=== PATIENT | female | born 1965 | race Caucasian/White ===

== ENCOUNTER 2024-08-17 12:07 | Emergency (ER) | payer OTHER, SELFPAY ==
--- NOTE | ~2024-08-17 | XR_ITS ---
EXAMINATION: XR HUMERUS, RIGHT CLINICAL INFORMATION: fall COMPARISON: Correlated to the right shoulder x-rays same day. TECHNIQUE: AP and lateral views of the right humerus. FINDINGS: The right humeral head is anterior right scapula and inferior to a coracoid. No acute cortical disruption. No gross volume loss. No lytic or blastic lesions. Acromioclavicular joint is intact. XR/XR humerus RT IMPRESSION: Anterior subcoracoid dislocated right glenohumeral joint. No acute fracture. Electronically signed by: Daryl Singh MD 08/17/2024 01:47 PM EST
--- NOTE | ~2024-08-17 | XR_ITS ---
EXAMINATION: XR RIBS, RIGHT CLINICAL INFORMATION: fall COMPARISON: None available. TECHNIQUE: 3 views of the right ribs were obtained. FINDINGS: No consolidation, pleural effusion or pneumothorax. No hyperinflation. Cardiomediastinal silhouette size is normal. No acute cortical disruption within the ribs right hemithorax. There is an anterior position of the right humeral head with respect to the right glenoid and below the coracoid process. There is a deformity in the greater tuberosity. XR/XR ribs RT min 3V w [id number] IMPRESSION: No acute airspace disease. No acute rib fracture, right hemithorax. Anterior subcoracoid dislocated right shoulder with Hill-Sachs deformity/compression fracture. Electronically signed by: Daryl Singh MD 08/17/2024 01:57 PM [facility]
--- NOTE | ~2024-08-17 | XR_ITS ---
EXAMINATION: XR SHOULDER, RIGHT CLINICAL INFORMATION: post reduction COMPARISON: Exam date x-ray TECHNIQUE: Three views of the right shoulder. FINDINGS: There is normal alignment of the right glenohumeral joint. There is subtle deformity of the greater tuberosity with subchondral cyst. A common clavicular joint is intact. No gross acute cortical disruption. XR/XR shoulder RT min 2V IMPRESSION: Satisfactory post reduction. Electronically signed by: Daryl Singh MD 08/17/2024 02:09 PM [facility]
--- NOTE | ~2024-08-17 | XR_ITS ---
EXAMINATION: XR ELBOW, RIGHT CLINICAL INFORMATION: fall COMPARISON: None available. TECHNIQUE: AP, lateral, and oblique views of the right elbow. FINDINGS: No acute cortical disruption or malalignment. No lytic or blastic lesions. No joint effusion. No metallic or radiopaque foreign body. XR/XR elbow RT min 3V IMPRESSION: No acute fracture or dislocation. Electronically signed by: Daryl Singh MD 08/17/2024 01:54 PM EST
--- NOTE | ~2024-08-17 | XR_ITS ---
EXAMINATION: XR SHOULDER, RIGHT CLINICAL INFORMATION: fall COMPARISON: None available. TECHNIQUE: Three views of the right shoulder. FINDINGS: The right humeral head is anterior to the right glenoid of the scapula and below the coracoid process. There is a cortical irregularity and deformity within the greater tuberosity of the humerus. The acromioclavicular joint is intact. XR/XR shoulder RT min 2V IMPRESSION: Anterior subcoracoid dislocated right glenohumeral joint/shoulder with the questionable Hill-Sachs deformity/fracture. Electronically signed by: Daryl Singh MD 08/17/2024 01:50 PM EST
--- NOTE | 2024-08-17 12:46 | ED.FALL ---
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 States fell onto right shoulder, denies head trauma or LOC. Denies anticoagulation use. Right-hand dominant. Denies neck/back pain, SOB Related Data Previous Rx's ?Medication ?Instructions ?Recorded acetaminophen 500 mg tablet 500 mg PO Q6H PRN fever or pain 08/17/24 (Tylenol Extra Strength) #14 tabs ibuprofen 800 mg tablet 800 mg PO Q8H PRN pain #14 tabs 08/17/24 lidocaine 5 % topical patch 1 patch topical DAILY PRN pain #30 08/17/24 (Lidoderm) ea morphine 15 mg immediate release 15 mg PO Q6H PRN pain (scale score 08/17/24 tablet 7-10) 3 days #9 tabs Allergies Allergy/AdvReac Type Severity Reaction Status Date / Time Sulfa (Sulfonamide Allergy Unknown RASH, HTN Unverified 08/17/24 12:59 Antibiotics) [SULFA (SULFONAMIDE ANTIBIOTICS)] Review of Systems Review of Systems: Yes all other systems are reviewed and are negative Constitutional: Constitutional: Reports as per [facility] Past Medical History Attestation statement: The following information was validated with the patient. Source: old records reviewed Social History Social History Advance Directives: Yes Advance Directives Information Provided: Yes Advance Directives on File: No Do you have a plan to hurt others: No Plan Physical Exam Vital Signs: Vital Signs: Last Vital Signs Temp 98 F 08/17/24 12:49 Pulse 89 08/17/24 12:49 Resp 16 08/17/24 12:49 BP 163/91 H 08/17/24 12:49 Pulse Ox 97 08/17/24 12:49 O2 Del Method Room Air 08/17/24 12:49 BMI result Body Mass Index 44.6 Const: General: cooperative, healthy appearing and no acute distress Orientation/consciousness: patient oriented x3 Limitations: no limitations HEENT: Head: Yes normal to inspection and Yes atraumatic Ears: hearing grossly normal bilaterally General nose exam: Normal external nose present Face and sinus: Yes normal facial exam Eyes: General: appearance normal, both eyes and all related structures EOM: EOMs intact bilaterally Neck: Neck: Yes normal visual inspection and Yes no meningeal signs Chest: Other: + right lower anterior lateral reproducible chest wall tenderness. No flail chest, erythema or ecchymosis Chest palpation & inspection: normal inspection of the chest, no crepitus and tenderness Resp: Effort & Inspection: normal respiratory effort and no respiratory distress Auscultation: clear to auscultation bilaterally Cardio: Rate: regular rate Heart sounds: S1 normal heart sound present and S2 normal heart sound present Back/Spine/Pelvis: Other: No midline cervical/thoracic/lumbar spinous tenderness/step-off or deformity Skin: Rashes: no rashes Wounds: no wounds Neuro: General: patient oriented x3, tone normal and no meningeal signs Cranial nerves: Yes CN's II-XII intact bilaterally Gait exam (Neuro): Normal gait present Extrem: Other: + appreciable right shoulder deformity. Diffusely tender to palpation. Limited ROM secondary to pain. + tenderness to proximal humerus. Right elbow/wrist/hand nontender Course Course Course Narrative: 58 yo female with PMH of HTN, DM, HLD not on blood thinners here with c/o walking over a guardrail during a walk this morning lifted one leg over and she tripped and fell landing on R shoulder and upper arm. She is R hand dominant no headstrike or LOC. no neck pain. Also has R rib pain - lung sounds present on exam. R humerus/shoulder/elbow xray, R rib series this is a RAPID medical screening exam the rest of the history and physical exam is to be done by the main provider. XR humerus RT IMPRESSION: Anterior subcoracoid dislocated right glenohumeral joint. No acute fracture. XR shoulder RT min 2V IMPRESSION: Anterior subcoracoid dislocated right glenohumeral joint/shoulder with the questionable Hill-Sachs deformity/fracture. XR elbow RT min 3V IMPRESSION: No acute fracture or dislocation. XR ribs RT min 3V w [id number]: No acute airspace disease. No acute rib fracture, right hemithorax. Anterior subcoracoid dislocated right shoulder with Hill-Sachs deformity/compression fracture. > reduction performed in the ED with scapular manipulation and traction/counter-traction with successful reduction 1422--XR shoulder RT min 2V IMPRESSION: Satisfactory post reduction. > sling applied. Is to follow up with Orthopedics Medications Administered Discontinued Medications Generic Name Dose Route Start Last Admin Trade Name Freq PRN Reason Stop Dose Admin Acetaminophen 975 mg 08/17/24 12:50 08/17/24 13:00 Acetaminophen 325 Mg Tablet PO 08/17/24 12:51 975 mg ONCE ONE Administration Morphine Sulfate 15 mg 08/17/24 12:50 08/17/24 13:01 Morphine Sulfate Immed Release 15 Mg Tablet PO 08/17/24 12:51 15 mg ONCE ONE Administration Procedures Orthopedic Joint Reduction Joint #1: Side: right Joint Reduction Location: shoulder Analgesia: other (P.o. morphine) Shoulder Technique Used (if applicable): traction/counter-traction and scapula manipulation Post-reduction neuro exam: intact Post-reduction vascular: intact Post Reduction X-Ray Obtained: Yes Post Reduction X-Ray Results: reduced Splint Applied: No (sling) Patient Tolerated Procedure: well Additional Comments: performed with Dr. Gibson Medical Decision Making Medical Decision Making MDM Narrative: 58-year-old female with past medical history HTN, DM, HLD, presenting to the ED complaining of right shoulder/upper arm and rib pain s/p mechanical trip and fall over a guard rail HR COORDINATOR. On exam vital signs stable, NAD, appears uncomfortable, physical exam as noted above. Concern for shoulder/clavicular vs humeral vs rib fracture vs dislocation vs tendon/ligamental injury. Lower suspicion for acute intra-abdominal or intrathoracic injury Plan: X-rays, pain control Please refer to course for remaining clinical decision making, interpretation of labs/imaging results, and discussions with consultants and/or family members. Differential Diagnosis Differential Diagnoses: The differential diagnosis associated with the presentation includes As above Independent Interpretation I performed an independent interpretation of an: Plain X-Ray Radiology Impression Discussion of test interpretation with radiology: I have reviewed the radiologist's reading. External Record Review External record reviewed: Inpatient record, Office record, Outpatient record, Prior outpatient labs, Prior outpatient radiology, Primary care record and Outside ED record Tests considered The following testing was considered but not selected: As above Prescription Management I considered prescription management with: Pain Medication Chronic Conditions Patient?s care impacted by: Diabetes, Hypertension and Other Social Determinants Patient?s care significantly limited by Social Determinants of Health including: Other Social Determinant of Health Discharge Plan Discharge Clinical Impression: Dislocated shoulder, Hill Sachs deformity Patient Disposition: Home, Self-Care Instructions: Shoulder Dislocation (ED), How to Use a Sling (ED) Additional Instructions: Your shoulder was dislocated. We relocated in the emergency department There is a possible nondisplaced fracture of your humeral head You need to wear sling at all times, you may take off to shower and sleep Please have close follow up with Orthopedics, call to make an appointment Morphine as an opiate pain medication, take only when pain is severe for the next 3 days In addition take ibuprofen and Tylenol If pain persists or worsen or becomes unbearable return to the emergency department Prescriptions: New ibuprofen 800 mg tablet 800 mg PO Q8H PRN (Reason: pain) Qty: 14 0RF acetaminophen [Tylenol Extra Strength] 500 mg tablet 500 mg PO Q6H PRN (Reason: fever or pain) Qty: 14 0RF lidocaine [Lidoderm] 5 % adhesive patch,medicated 1 patch topical DAILY MDD remove after 12 hours PRN (Reason: pain) Qty: 30 0RF Rx Instructions: leave on most painful area for up to 12 hrs morphine 15 mg tablet 15 mg PO Q6H PRN (Reason: pain (scale score 7-10)) 3 Days Qty: 9 0RF Rx Instructions: Partial Fill upon patient request. Referrals: [facility] [place] Orthopedic Surgeons [Provider Group] - 1 week Print Language: Israeli
[2024-08-17 12:49] VITALS: BP 163/91; PULSE 89; RESP 16; TEMP 36.6; O2SAT 97; BMI 44.6
[2024-08-17] MEDS: Acetaminophen 325 MG TABLET 975 MG PO (13:00)
[2024-08-17] MEDS: Morphine Sulfate Immed Release 15 MG TABLET PO (13:01)
[2024-08-17 15:12] VITALS: BP 140/78; PULSE 75; RESP 16; TEMP 37.1; O2SAT 97
== END 2024-08-17 15:14 | disposition home or self-care (01) ==
PROVIDERS: Emergency Provider Emergency Medicine; PCP Internal Medicine
DX: S42.291A Other displaced fracture of upper end of right humerus, initial encounter for closed fracture (principal); S43.004A Unspecified dislocation of right shoulder joint, initial encounter; R07.81 Pleurodynia; I10 Essential (primary) hypertension; M25.511 Pain in right shoulder; W19.XXXA Unspecified fall, initial encounter; Y93.01 Activity, walking, marching and hiking; Y92.9 Unspecified place or not applicable; Y99.8 Other external cause status
CPT/HCPCS: 23575; 71101; 73030; 73060; 73080; 99283; 99284

== ENCOUNTER → 2024-08-17 12:50 | Outpatient (BNV) | payer OTHER, SELFPAY | PROVIDERS: Emergency Provider Emergency Medicine; PCP Internal Medicine; Visit Provider Radiology Diagnostic Radiology | DX: R07.81 Pleurodynia (principal); S43.004A Unspecified dislocation of right shoulder joint, initial encounter; M25.511 Pain in right shoulder; M25.521 Pain in right elbow; M79.601 Pain in right arm; W01.0XXA Fall on same level from slipping, tripping and stumbling without subsequent striking against object, initial encounter | CPT/HCPCS: 71101; 73030; 73060; 73080 ==

== ENCOUNTER 2024-09-01 08:49 | Outpatient (AMB) | payer OTHER, SELFPAY ==
--- NOTE | 2024-09-01 09:09 | A.OFFVIS_ITS ---
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 Per ED note patient was going for a walk when she attem pted to step over a short guard rail causing her to trip and land on her right side. Patient reports shoulder and ribs pain and discomfort. Limited ROM, stating unable to lift her arm over her head. She has a constant aggravating pain in her shoulder. No numbness or tingling. Finds relief with alternating Tylenol and Motrin prn. 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 She states she was trying to go over a guard rail when she fell dislocating the shoulder. She was seen in the emergency department where she was reduced and placed in a sling. She was referred to our office for ortho eval. [facility] Social History (Updated 09/01/24 @ 09:13 by Adriana Parker Lisa) Patient Tobacco Use Status: Former Tobacco user Current occupational status: unemployed Current occupation: right hand dominant Review of Systems Const All systems reviewed & are unremarkable except as noted in HPI and below Physical Exam Vital Signs: BMI result Body Mass Index 44.5 Const General: cooperative and no acute distress Orientation/consciousness: patient oriented x3 Resp Effort & Inspection: normal respiratory effort and able to speak in complete sentences Cardio Peripheral pulses: Peripheral pulses 2+ throughout Neuro General: patient oriented x3 Extrem Other: Right shoulder normal to inspection. Forward flexion to 90 degrees. I can passively bring her up to 100 degrees. External rotation to 80. Internal rotation to back pocket. She is able to activate her rotator cuff strength with use of accessory muscles. Neurovascularly intact. Results Reviewed Results Reviewed: X-rays of the right shoulder from 08/17/2024 in the emergency department show anterior dislocation of the shoulder followed by a successful reduction. No evidence of fractures. Assessment & Plan Assessment & Plan (1) Dislocation of right shoulder joint: Code(s): S43.004A - Unspecified dislocation of right shoulder joint, initial encounter Category: Medical Plan: I explained the extent of the injury to the patient along with the course of recovery. An order for physical therapy was ordered to work on range of motion and rotator cuff/periscapular stabilization. A prescription for ibuprofen was sent to the pharmacy to take 3 times a day for 2 weeks to help with the inflammation. She should attempt to increase activities as tolerated. I will see her back in 6-8 weeks for re-evaluation. She can cancel this appointment if she is doing well. Medications: Discontinued morphine Partial Fill upon patient request. Discontinued Reason: Patient no longer taking 15 mg PO Q6H 3 days PRN 9 tabs 0RF pain (scale score 7-10) lidocaine 5% (Lidoderm) leave on most painful area for up to 12 hrs Discontinued Reason: Patient no longer taking 1 patch topical DAILY PRN 30 ea 0RF pain MDD remove after 12 hours Coding Level of Care Code New Pt Level 3 (09691) Complex EM visit Add On G2211 Diagnoses Dislocation of right shoulder joint S43.004A
[2024-09-01 09:14] VITALS: BMI 44.5
== END 2024-09-01 09:50 | disposition home or self-care (01) ==
LOC: HO.HOS 08:50
PROVIDERS: PCP Internal Medicine; Visit Provider Physician Assistant
DX: S43.004A Unspecified dislocation of right shoulder joint, initial encounter (principal)
CPT/HCPCS: 99203

== ENCOUNTER → 2024-09-01 08:49 | Outpatient (BNVA) | payer OTHER, SELFPAY | PROVIDERS: PCP Internal Medicine; Visit Provider Physician Assistant ==